=== PATIENT | female | born 1985 | race Caucasian/White ===

== ENCOUNTER 2019-04-14 23:44 | Observation (INO) | payer OTHER, SELFPAY ==
--- NOTE | 2019-04-14 23:50 | DI.US.S_ITS ---
PROCEDURE: US PELVIC COMPLETE INDICATIONS: POSITIVE HCG; PAIN, BLEEDING TECHNIQUE: Real-time scanning was performed of the pelvic organs, with image documentation. Additional endovaginal scanning was necessary due to incomplete visualization of the adnexal and endometrial structures by transabdominal scanning. COMPARISON: None. FINDINGS: Transabdominal scanning: Limited scanning through the kidneys shows no hydronephrosis. Moderate amount of pelvic free fluid containing diffuse internal echoes, most prominent in the posterior cul-de-sac. There is also fluid noted adjacent to the right kidney. Endovaginal scanning: Uterus: Uterus is normal in size at 9.6 x 4.0 x 5.2 cm. The endometrium measures 11 mm in combined thickness. No evidence for intrauterine gestation in this patient with positive hCG evaluation. Ovaries: Bilateral ovaries were not visualized secondary to bowel gas. Other findings: There is a 10.4 x 4.2 x 6.2 avascular, heterogeneous hypoechoic mass in the region of the posterior cul-de-sac with adjacent free fluid. IMPRESSION: There is a 10.4 cm avascular, heterogeneously hypoechoic mass within the posterior cul-de-sac with moderate amount of pelvic free fluid containing diffuse echogenic debris as well as no sonographic evidence for intrauterine gestation in this patient with positive hCG test and pelvic pain/bleeding. Although this finding may represent fecal material within the adjacent bowel or hemorrhagic product, overall clinical history suggests an ectopic . Findings are concordant with preliminary radiology report. Dictated by: Seamus Astudillo M.D. on 04/15/2019 at 8:53 Approved by: Seamus Astudillo M.D. on 04/15/2019 at 9:10
[2019-04-15] VITALS (19 sets, daily range): BP systolic 91–116; BP diastolic 56–74; PULSE 78–130; RESP 14–24; TEMP 36.4–36.9; O2SAT 93–100; BMI 21.9
--- NOTE | 2019-04-15 | PATH_ITS ---
[facility] Accession Number: [id number] . 01 Material submitted: . ovary - ECTOPIC LEFT OVARIAN . 02 Diagnosis: Left Ovary, Ectopic , Excision: Chorionic villi present. No evidence of neoplasm. MRV/04/19/2019 . 02 Electronically signed: . Marcelo Calhoun MD, PhD, Pathologist NPI- [id number] . 01 Gross description: . Received in formalin, labeled ectopic , are multiple fragments of red-brown tissue (4.2 x 3.1 x 0.5 cm in aggregate). No tissue is identified. Entirely submitted in cassettes A1-A3. ([id number]) /MRV . 02 Pathologist provided ICD-10: O00.202 . 02 CPT . 324061 Performed at: 01 [facility] [address] [id number] MD Jacques Salvador MD Phone: [phone] Performed at: 02 [facility] [place] [address] [address] [place] [id number] MD Val Childers MD Phone: [phone]
--- NOTE | 2019-04-15 00:12 | ED_ITS ---
HPI - General Chief complaint: OB/Uterine Contractions Stated complaint: Abdominal pain/6 weeks Time Seen by Provider: 04/14/19 23:49 Source: patient Mode of arrival: ambulatory Limitations: no limitations History of Present Illness HPI Narrative: 33-year-old female nonsmoker with noncontributory medical history is a at 6 weeks and presents with gradually worsening lower abdominal pain and spotting over the course of the day. She states the bleeding is actually minimal but her pain is rather significant, particularly when standing. She is not dizzy nor weak or lightheaded. She has been nauseated but denies any vomiting. She states she is Rh negative and has received RhoGAM in the past. She was seen and evaluated at an outside facility and sent here due to lack of complete lab availability including serum quantitative HCG, Rh typing as well as access to ultrasound. Patient is from [place] and was vacationing on [facility]. Complaint: abdominal pain and vaginal bleeding Onset (ago): hour(s) Pain Consistency: intermittent Location: pelvis Severity: moderate Quality: Aching Radiation: pelvis Relieving factors: other (laying flat) Exacerbating factors: other (standing) Associated symptoms: nausea Vaginal discharge: none Vaginal bleeding: light Date of Last Menstrual Period: 03/05/19 Patient : Yes Number of Weeks : 6 OB History - Current : no complications OB History - Previous Pregnancies: other (blighted ovum) care: none Related Data : 3 Para: 1 Allergies Allergy/AdvReac Type Severity Reaction Status Date / Time No Known Drug Allergies Allergy Verified 04/15/19 00:03 Review of Systems Constitutional Denies chills, Denies fever(s), Denies lethargy and Denies weakness Eyes Denies change in vision, Denies eye discharge, Denies irritation and Denies loss of vision ENT Ears, Nose, Mouth, and Throat: Denies change in voice, Denies neck pain and Denies sore throat Cardiovascular Denies chest pain, Denies irregular heart rhythm, Denies lightheadedness, Denies palpitations, Denies dyspnea, Denies dyspnea on exertion and Denies orthopnea Respiratory Denies cough, Denies dyspnea, Denies dyspnea on exertion and Denies wheezing Gastrointestinal Gastrointestinal: Denies abdominal pain, Denies change in bowel habits, Denies diarrhea, Denies nausea and Denies vomiting Genitourinary Reports abnormal vaginal bleeding, Denies hematuria, Reports pelvic pain, Denies flank pain, Denies urinary incontinence and Denies urinary urgency Musculoskeletal Denies neck pain Integumentary/Breasts Denies pruritus, Denies erythema, Denies rash and Denies wounds Neurologic Denies confusion, Denies loss of vision and Denies weakness Psychiatric Denies anxiety, Denies confusion, Denies depression, Denies homicidal ideation and Denies suicidal ideation Endocrine Denies palpitations Hematologic/Lymphatic Denies easy bruising Allergic/Immunologic Denies wheezing PMFSH - Past Medical History Medical history: Reports no medical history Surgical history: Reports non-contributory Date of Last Menstrual Period: 03/05/19 Patient : Yes Psychiatric history: Reports no psych history Family history: Reports no significant family history Exam Narrative Exam Narrative: GENERAL: 33-year-old female obviously uncomfortable, required assistance getting out of her van HEAD: Atraumatic. Normocephalic. No temporal or scalp tenderness. EYES: Pupils equal round and reactive. Extraocular motions intact. No scleral icterus. No injection or drainage. ENT: Nose without bleeding, purulent drainage or septal hematoma. Throat without erythema, tonsillar hypertrophy or exudate. Uvula midline. Airway patent. NECK: Trachea midline. No JVD or lymphadenopathy. Supple, nontender, no meningeal signs. CARDIOVASCULAR: Regular rate and rhythm without murmurs, gallops, or rubs. RESPIRATORY: Clear to auscultation. Breath sounds equal bilaterally. No wheezes, rales, or rhonchi. GASTROINTESTINAL: Abdomen soft, suprapubic tenderness to palpation, nondistended. No hepato-splenomegaly, or palpable masses. No guarding. EXTREMITIES: No clubbing, cyanosis, or edema. No joint tenderness, effusion, or edema noted. BACK: Nontender without deformity or crepitance. No flank tenderness. NEURO: AOx3. SKIN: No rash or erythema. Initial Vital Signs Initial Vital Signs: Vital Signs Temperature 97.5 F L 04/15/19 00:00 Pulse Rate 97 H 04/15/19 00:00 Respiratory Rate 16 04/15/19 00:00 Blood Pressure 97/70 04/15/19 00:00 Pulse Oximetry 97 04/15/19 00:00 Procedures Number of Weeks : 6 Course Orders Ordered: ED Orders 04/14/19 23:50 US pelvic complete Stat ABO RH Type Stat 04/14/19 23:51 HCG Quantitative Stat 04/15/19 00:09 Antibody Screen Stat Hemoglobin and Hematocrit Stat Lactated Ringer's (Lactated Ringers) 1,000 mls @ 42 mls/hr IV CONT JUAN CARLOS Last Infusion: 04/15/19 02:17 Dose: 42 mls/hr Admin: 04/15/19 02:00 Dose: 42 mls/hr Discontinued Medications Famotidine (Pepcid) 20 mg in 50 mls @ 200 mls/hr IV NOW ONE Stop: 04/15/19 02:05 Last Infusion: 04/15/19 02:17 Dose: 200 mls/hr Admin: 04/15/19 02:00 Dose: 200 mls/hr Metoclopramide HCl (Reglan) 10 mg IV NOW ONE Stop: 04/15/19 01:52 Last Admin: 04/15/19 02:00 Dose: 10 mg Consultations Consultation #1: call to Dr. Frausto upon receipt of the US. She wants us to activate the OR and suggests against giving blood or Rhogam at this point in t fidencio. She will address it as needed. Vital Signs - 8 hr 04/15/19 00:00 04/15/19 00:53 04/15/19 01:20 Temperature 97.5 F L Pulse Rate 97 H 80 85 Respiratory Rate 16 20 16 Blood Pressure 97/70 Blood Pressure [Left Arm] 110/73 111/74 Pulse Oximetry 97 100 100 MDM - OB/Uterine Contractions Medical Records Attestation: I reviewed the patient's medical records. Lab Data Attestation: I reviewed the patient's lab results. Result diagrams: 04/15/19 00:09 Lab Results 04/15/19 04/15/19 04/15/19 Range/Units 00:09 00:09 00:09 Hgb 10.5 L (12.0-16.0) g/dL Hct 30.8 L (36-46) % HCG, Quant 2066.2 mIU/mL Blood Type A Negative Antibody Screen Negative Imaging Data Pelvic US: Radiologist's impression: empty uterus fluid in Ring's pouch suggesting ruptured ectopic Discharge Plan Departure Patient Disposition: Admitted as Observation Clinical Impression: Ruptured ectopic Admit Date/Time: 04/15/19 01:41 Admit Provider: Lisa Frausto
[2019-04-15 00:48] LABS: HCG Quantitative /Beta subunit 2066.2 mIU/mL
[2019-04-15 00:59] LABS: Hematocrit 30.8 % (36-46); Hemoglobin 10.5 g/dL (12.0-16.0)
[2019-04-15] MEDS: LACTATED RINGERS 1,000 ML 42 ML IV ×2 (02:00→03:44)
[2019-04-15] MEDS: FAMOTIDINE 20 MG/50 ML PIGGYBACK 200 MG IV (02:00)
[2019-04-15] MEDS: METOCLOPRAMIDE 10 MG/2 ML INJ IV (02:00)
--- NOTE | 2019-04-15 02:03 | PM.PREOP ---
Pre-operative Note Interval Note History & Physical reviewed/Exam performed by Physician: Yes Changes to H&P: No
--- NOTE | 2019-04-15 02:03 | PM.GYNHP.1 ---
History of Present Illness Reason for admission: ectopic Narrative: Sanaz Young is a 33 year old female with onset increasing abdominal pain causing nausea. [facility] Medical History (Updated 04/15/19 @ 02:06 by Lisa Frausto MD) Eczema (Chronic) Social History Smoking Status: Never smoker Social History Smoking Status: Never smoker Meds Allergies Allergy/AdvReac Type Severity Reaction Status Date / Time No Known Drug Allergies Allergy Verified 04/15/19 00:03 Review of Systems Review of Systems Patient with abdominal pain that it is causing nausea. All systems reviewed & are unremarkable except as noted in HPI and below Exam Vital Signs (past 8 hours): - 04/15/19 00:00 04/15/19 00:53 04/15/19 01:20 Temperature 97.5 F L Pulse Rate 97 H 80 85 Respiratory Rate 16 20 16 Blood Pressure 97/70 Blood Pressure [Left Arm] 110/73 111/74 Pulse Oximetry 97 100 100 Oxygen Delivery Method Room Air Narrative Exam Narrative: HEENT exam within normal limits. Lungs are clear to auscultation percussion. Heart is regular rate and rhythm no S3-S4 or murmurs. Abdomen is soft slightly distended with tenderness in the lower abdomen. Pelvic exam was not performed. Extremities without edema and nontender. Objective Imaging US - abdomen: Radiologist's impression: Empty uterus, free fluid in the pelvis, a vascular mass in the abdomen behind the uterus, Probable ectopic with Labs Result Diagrams: 04/15/19 00:09 Labs: Laboratory Results - last 24 hr 04/15/19 04/15/19 04/15/19 00:09 00:09 00:09 Hgb 10.5 L Hct 30.8 L HCG, Quant 2066.2 Blood Type A Negative Assessment & Plan (1) Ruptured ectopic : Current visit: Yes Status: Acute Assessment & Plan narrative: Probable ruptured ectopic . Laparoscopy with removal of ectopic . Consent form was reviewed with the patient. Risk of damage to internal structures such as bowel, bladder, ureters that might require opening the abdomen. Incomplete removal of ectopic that might require additional medication or surgery. Low risk for infection. Time Spent With Patient Time with patient: less than 15 minutes
--- NOTE | 2019-04-15 02:34 | SUR.PREOP ---
patient reports 6/10 pain, verbal report to Dr. Fernandez, medicated for pain per Dr. Fernandez with improvment.
--- NOTE | 2019-04-15 02:36 | SUR.PREOP ---
report to COMPUTER INFORMATION SYSTEMS INSTRUCTOR, patient to OR.
--- NOTE | 2019-04-15 03:04 | SUR.OPER ---
Lithotomy on padded OR bed, head on pillow, arms secured on padded arm boards at <90 degrees abduction. Legs secured in padded yellow fins stirrups.
[2019-04-15] MEDS: BUPIVACAINE 0.5% W/ EPI (PF) VIAL 30 ML INJ (03:08)
[2019-04-15] MEDS: METHYLENE BLUE 50 MG/10 ML VIAL INJ (03:30)
--- NOTE | 2019-04-15 03:58 | PM.OP.1 ---
Operative Date/Time/Diagnoses Date of procedure: 04/15/19 Time of procedure: 03:58 Pre-op diagnosis: Ruptured ectopic Post-op diagnosis: same Procedure & Clinicians Procedure: Laparoscopy with removal ectopic tissue Same procedure as scheduled: Yes Indications: Pelvic pain and ultrasound suggestive ruptured ectopic Surgeon: Lisa Frausto Click Yes if Unassisted: Yes Anesthesia Type: General Operative Notes Findings: Moderate amount of blood in the abdomen. Adhesion of the uterus to the anterior abdominal wall. Normal right tube and ovary. Adhesion and presumed ectopic tissue between the left ovary and descending colon. Normal-appearing left fallopian tube. Closure Type: primary Specimen(s): other (Tissue suspected of being ectopic tissue) Estimated Blood Loss (mL): 100 Blood products transfused: none Procedure in detail: Patient was brought to the operating room where she underwent general anesthesia. She was placed in low [facility] stirrups. She was prepped and draped in the usual sterile fashion. A check system was reviewed with the staff in the room prior to beginning of the case. Antibiotics were not indicated. Warming was with blankets. Pulsatile stockings were in place and functional. A speculum was placed in the vagina and a single-tooth tenaculum placed on the anterior lip of the cervix. The cervix was dilated to a #6 Hegar dilator. The ZUMI uterine manipulator was placed in the uterus through the cervix and balloon inflated with 3 cc of air. Area of a prior laparoscopic incision was injected with 0.5% Marcaine with epinephrine and incision made. The Verres needle was placed into the abdomen with confirmation of placement by withdrawing on the verres needle and along a drop fluid to fall into the abdomen. The abdomen was insufflated with approximately 3 L of CO2. The 5 mm trocar was placed through the incision under direct visualization. There did not appear to be damage with placement of the trocar. Two areas in the right and left lower quadrant were injected with the Marcaine and 5 mm trocars placed under direct visualization with no damage to internal structures. The blood was removed with the suction hot roller. The presumed ectopic tissue between the left ovary and the surface of the descending colon was removed with an atraumatic grasper. There was minimal bleeding. Methylene blue to saline was placed through the Zumi. Both fallopian tubes had good flow of the methylene blue. The several 100 cc of fluid was placed in the abdomen and the CO2 allowed to escape from the abdomen. The trocars were removed under direct visualization. The skin was closed with 4 0 Monocryl. Counts of instruments and sponges were correct. The presumed ectopic tissue was sent to pathology. Patient went to recovery room in good condition. Complications: none Condition: stable Disposition: observation Plan for aftercare: Patient will be discharged when awake and stable. She will need a follow-up quantitative HCGs to make sure the entire ectopic was removed.
--- NOTE | 2019-04-15 04:08 | P.OP_ITS ---
Operative Date/Time/Diagnoses Date of procedure: 04/15/19 Time of procedure: 03:58 Pre-op diagnosis: Ruptured ectopic Post-op diagnosis: same Procedure & Clinicians Procedure: Laparoscopy with removal ectopic tissue Same procedure as scheduled: Yes Indications: Pelvic pain and ultrasound suggestive ruptured ectopic Surgeon: Lisa Frausto Click Yes if Unassisted: Yes Anesthesia Type: General Operative Notes Findings: Moderate amount of blood in the abdomen. Adhesion of the uterus to the anterior abdominal wall. Normal right tube and ovary. Adhesion and presum ed ectopic tissue between the left ovary and descending colon. Normal-appearing left fallopian tube. Closure Type: primary Specimen(s): other (Tissue suspected of being ectopic tissue) Estimated Blood Loss (mL): 100 Blood products transfused: none Procedure in detail: Patient was brought to the operating room where she underwent general anesthesia. She was placed in low [facility] stirrups. She was prepped and draped in the usual sterile fashion. A check system was reviewed with the staff in the room prior to beginning of the case. Antibiotics were not indicated. Warming was with blankets. Pulsatile stockings were in place and functional. A speculum was placed in the vagina and a single-tooth tenaculum placed on the anterior lip of the cervix. The cervix was dilated to a #6 Hegar dilator. The ZUMI uterine manipulator was placed in the uterus through the cervix and balloon inflated with 3 cc of air. Area of a prior laparoscopic incision was injected with 0.5% Marcaine with epinephrine and incision made. The Verres needle was placed into the abdomen with confirmation of placement by withdrawing on the verres needle and along a drop fluid to fall into the abdomen. The abdomen was insufflated with approximately 3 L of CO2. The 5 mm trocar was placed through the incision under direct visualization. There did not appear to be damage with placement of the trocar. Two areas in the right and left lower quadrant were injected with the Marcaine and 5 mm trocars placed under direct visualization with no damage to internal structures. The blood was removed with the suction mds nurse. The presumed ectopic tissue between the left ovary and the surface of the descending colon was removed with an atraumatic grasper. There was minimal bleeding. Methylene blue to saline was placed through the Zumi. Both fallopian tubes had good flow of the methylene blue. The several 100 cc of fluid was placed in the abdomen and the CO2 allowed to escape from the abdomen. The trocars were removed under direct visual ization. The skin was closed with 4 0 Monocryl. Counts of instruments and sponges were correct. The presumed ectopic tissue was sent to pathology. Patient went to recovery room in good condition. Complications: none Condition: stable Disposition: observation Plan for aftercare: Patient will be discharged when awake and stable. She will need a follow-up quantitative HCGs to make sure the entire ectopic was removed.
[2019-04-15] MEDS: fentaNYL 100 MCG/2 ML INJ 50 MCG IV (04:34)
[2019-04-15] MEDS: OXYCODONE/ACETAMINOPHEN 5/325 TABLET 1 TAB PO ×2 (06:59→15:46)
--- NOTE | 2019-04-15 07:35 | PC.NURSE ---
0500 Pt arrived to the floor from PACU via bed. Pt stated pain was a tolerable 4/10 in her abdomen. Denied any nausea. Has 2x2 gauze dressing w/ tegaderm to midline abd w/ small amount of pink drainage to bottom right of gauze. [address] on abd on each side of gauze dressing both are c/d/i. Pt drowsy but responds normally to voice. Answered all questions appropriately. SCDs and cont. pulse ox in place. Pt is resting comfortably. Call made to Dr. Frausto for orders as no orders had been put in yet. Dr. Frausto ordered percocet, zofran, saline lock, and regular diet. Orders were read back and confirmed. Coordinator updated on pt and plan.
--- NOTE | 2019-04-15 07:51 | PM.PN.1 ---
Subjective Date Patient Seen: 04/15/19 Time Patient Seen: 07:51 Interval history: patient is a 33-year-old white female one para one who presented with a history of a missed menstrual period and lower abdominal does for and pain. Her quantitative HCG was over 2000. An ultrasound which was obtained showed an empty uterus and a mass. There was fluid in the cul-de-sac. Presumptive diagnosis of ectopic was made. Patient was taken to surgery by Dr. Lisa Frausto MD and ectopic was found lying between the ovary and the colon. It was removed without difficulty. There appeared to be no damage to the surrounding structures. Dye was placed through the fallopian tubes and they were patent and flow was without resistance. Post surgery the patient has done well. She is now six hours post surgery. Her IV is been removed. Her Esparza has been removed. She is ambulating slowly. She has not taken oral food yet. Exam Vital Signs (past 8 hours): - 04/15/19 00:00 04/15/19 00:53 04/15/19 01:20 Temperature 97.5 F L Pulse Rate 97 H 80 85 Respiratory Rate 16 20 16 Blood Pressure 97/70 Blood Pressure [Left Arm] 110/73 111/74 Pulse Oximetry 97 100 100 04/15/19 03:56 04/15/19 04:04 04/15/19 04:10 Temperature 98 F Pulse Rate 130 H 115 H 111 H Respiratory Rate 24 24 17 Blood Pressure 115/66 103/56 L 102/58 L Blood Pressure [Left Arm] Pulse Oximetry 99 98 95 04/15/19 04:16 04/15/19 04:21 04/15/19 04:26 Temperature 98.5 F Pulse Rate 93 H 100 H 97 H Respiratory Rate 14 18 17 Blood Pressure 107/60 98/63 104/65 Blood Pressure [Left Arm] Pulse Oximetry 93 93 96 04/15/19 04:36 04/15/19 04:41 04/15/19 04:47 Temperature Pulse Rate 97 H 89 103 H Respiratory Rate 17 17 17 Blood Pressure 91/61 103/60 100/64 Blood Pressure [Left Arm] Pulse Oximetry 95 95 95 04/15/19 05:00 04/15/19 05:15 04/15/19 05:45 Temperature 98.4 F 98.2 F 98.2 F Pulse Rate 99 H 78 84 Respiratory Rate 20 16 16 Blood Pressure 106/65 96/60 98/65 Blood Pressure [Left Arm] Pulse Oximetry 100 100 98 04/15/19 06:45 Temperature 98.5 F Pulse Rate 122 H Respiratory Rate 15 Blood Pressure 98/61 Blood Pressure [Left Arm] Pulse Oximetry 99 Oxygen Delivery Method Room Air Narrative Exam Narrative: Examination today is confined to the abdomen. Patient has incisions in the umbilicus and left and right mid quadrants. These are without ecchymoses. The abdomen is only mildly distended. There are excellent bowel sounds. There is a small amount of tenderness. Objective Labs Result Diagrams: 04/15/19 00:09 Labs: Laboratory Results - last 24 hr 04/15/19 04/15/19 04/15/19 00:09 00:09 00:09 Hgb 10.5 L Hct 30.8 L HCG, Quant 2066.2 Blood Type A Negative Antibody Screen Negative Crossmatch See Detail Assessment & Plan Assessment & Plan narrative: Ectopic probable ovarian No evident damage to fallopian tubes Patient recovered Plan is to repeat CBC Ambulation Regular diet Quality VTE Deep Vein Thrombosis/Pulmonary Embolism Present on Admission: No
[2019-04-15 08:39] LABS: Hematocrit 26.6 % (36-46)
--- NOTE | 2019-04-15 08:51 | CM.DANOTE ---
DCP: Case received, EMR reviewed and met with patient. Introduced self and role. Obtained baseline history from patient. , Britton at bedside as well. DCP template assessment completed with information currently available. Patient is a 33 year old female who admitted early this morning to the care of the hospitalist/surgical team. Payer: confirmed: Varun Espinal. Patient and her and toddler up here visiting from [place], [place]. She started having abdominal pains, and vaginal spotting, for she was [address] Frausto was called to case. She had Laprascopic with removal of ectopic pregancy. Patient pleasant. She also had her toddler in the bed with her. They are planning on going back to [place] when she is stable. P: DCP to continue to follow. Plan is to return home when she is medically stable. Taty Burns RN/Dye Tank Tender
[2019-04-15] MEDS: RHO(D) IMMUNE GLOBULIN 1,500 UNIT SYRINGE 1500 UNIT IM (09:40)
--- NOTE | 2019-04-15 15:15 | PM.DS.1 ---
History of Present Illness Chief complaint: Abdominal pain/6 weeks Discharge Providers Date of admission: 04/15/19 01:41 Discharge Date: 04/15/19 Discharge provider: Nikolay Antoine MD Summary Discharge Diagnosis: Ectopic Hospital Course: The patient is a 33-year-old white female two para one the 1st baby having been delivered by section. The patient was amenorrhea and early and presented with lower abdominal discomfort and pain. She had an HCG of 2000 and an ultrasound showing an empty uterus and a mass. Presumptive diagnosis is ectopic . Patient was taken to surgery and underwent laparoscopy. The ectopic appeared to be ovarian and was lodged between the ovary and the large bowel. It was removed without difficulty. Both tubes had dye placed through them and were patent without resistance. The patient is Rh negative and received RhoGAM. Post operation the patient has done well. She remains afebrile stable vital signs and has been progressively element and ambulated. She will be discharged home Exam Vital Signs (past 8 hours): - 04/15/19 08:55 04/15/19 11:05 Temperature 98.5 F 98.5 F Pulse Rate 94 H 92 H Respiratory Rate 18 16 Blood Pressure 91/58 L 97/65 Pulse Oximetry 100 98 Oxygen Delivery Method Room Air Oxygen Flow Rate 0 Narrative Exam Narrative: The abdomen is soft and minimally tender. The incisions are without ecchymotic areas. There excellent bowel sounds. There is minimal vaginal drainage. Objective Labs Result Diagrams: 04/15/19 08:20 Labs: Laboratory Results - last 24 hr 04/15/19 04/15/19 04/15/19 00:09 00:09 00:09 Hgb 10.5 L Hct 30.8 L HCG, Quant 2066.2 Blood Type A Negative Antibody Screen Negative Crossmatch See Detail 04/15/19 08:20 Hgb Hct 26.6 L HCG, Quant Blood Type Antibody Screen Crossmatch Discharge Plan Discharge Plan Patient Disposition: Home Discharge Med Rec/Prescriptions Prescriptions: New oxycodone-acetaminophen [Percocet] 5-325 mg tablet 1 tab PO Q8H Qty: 10 RF: 0 ferrous gluconate 324 mg (37.5 mg iron) tablet 324 mg PO DAILY Qty: 30 RF: 0 Provider Discharge Instructions Diet: Diet as Tolerated Activity: Up ad jojo Skin/Wound/Dressing Care Report to your healthcare provider any signs of infection, such as:: chills, fever, increased pain, unusual drainage and unusual redness Dressing: May remove umbilical dressing in two days May shower Other wound treatment: Keep wounds clean and dry Visit Report/Discharge Packet Stand Alone Forms: Surgery Discharge Visit Report Forms: Stroke Signs & Symptoms Discharge Data Attending Provider: Lisa Frausto Admit Date/Time: 04/15/19 01:41 Quality VTE Deep Vein Thrombosis/Pulmonary Embolism Present on Admission: No
--- NOTE | 2019-04-15 17:40 | PC.NURSE ---
Pt sitting upright in chair in room 205 @ beginning of shift. Dr. Antoine in to see patient and pt's spouse. Pt agrees to pain meds prior to discharge. Given one percocet and yogurt. BP 116/59 with HR 106. Pt admits to slight dizziness. Pt is safe on feet and assisted to shower by [employer] as pt requests. Per pt, Dr. Antoine has hand delivered prescriptions to patient. Pt and spouse were given discharge instructions in written and printed format. Questions answered as appropriate. Pt left hospital with spouse and toddler in stable condition with all personal belongings accounted for escorted via wheelchair by this senior mortgage underwriter.
== END 2019-04-15 16:50 | disposition home or self-care (01) ==
LOC: ED 04-15 01:41 → AC 04-15 01:42
PROVIDERS: Admitting Provider Specialist; Emergency Provider Emergency Medicine; Visit Provider Specialist
PROC: 0WJJ0ZZ Inspection of Pelvic Cavity, Open Approach (ICD-10-PCS; CPT 49000; principal; 2019-04-15 02:30)
DX: O00.90 Unspecified ectopic pregnancy without intrauterine pregnancy (principal); Z3A.01 Less than 8 weeks gestation of pregnancy
CPT/HCPCS: 59150; 36415; 76830; 76856; 84702; 85014; 85018; 86850; 86900; 86901; 88305; 96365; 96372; 96375; 99284; G0378; J0330; J1100; J1885; J2250; J2405; J2704; J2765; J2790; J3010; Q9968